=== PATIENT | female | born 1965 | race Caucasian/White ===

== ENCOUNTER 2023-01-20 02:33 | Observation (INO) ==
[2023-01-20 04:46] LABS: Albumin 3.4 g/dL (3.2-5.2); Albumin/Globulin Ratio 1.4 (1-3); Calcium 8.4 mg/dL (8.6-10.3); Creatinine, Serum 0.85 mg/dL (0.51-0.95); Globulin 2.5 g/dL (2-4); Potassium 3.5 mmol/L (3.5-5.0); Total Bilirubin 0.4 mg/dL (0.2-1.0); Total Protein 5.9 g/dL (6.4-8.9); eGFR CKD-EPI 80.4 (>60)
[2023-01-20 05:12] LABS: ABS Eosinophils 0.1 10^3/uL (0.0-0.5); ABS Lymphocytes 2.6 10^3/uL (1.0-4.8); ABS Monocytes 0.7 10^3/uL (0.0-0.9); ABS Neutrophils 3.6 10^3/uL (1.5-7.6); ABS Nucleated RBC 0.01 10^3/ul; Eosinophil % 1.8 %; Hematocrit 38.6 % (35-45); Hemoglobin 13.1 g/dL (11.5-14.3); Lymphocyte % 36.5 %; Mean Corpuscular Hemoglobin 29.8 pg (27-33); Mean Corpuscular Hgb Conc 33.8 g/dL (31-36); Mean Platelet Volume 7.1 fL (7.5-11.2); Nucleated Red Blood Cells % 0.1 %/100WBC (0.0-0.8); Platelet Count 251 10^3/uL (150-450); Red Blood Count 4.39 10^6/uL (3.63-4.92); White Blood Count 7.2 10^3/uL (3.8-11.8)
[2023-01-20 05:46] LABS: High Sensitivity Troponin 1 Hr < 3 pg/mL (<15)
[2023-01-20 07:30] LABS: HDL Cholesterol 54.7 mg/dL
[2023-01-20] MEDS ORDERED: Aminophylline 25 MG/ML VIAL ONE (09:05)
[2023-01-20] MEDS ORDERED: Regadenoson 0.4 MG/5 ML SYRINGE ONE (09:05)
[2023-01-20 15:02] VITALS: BP 120/74
== END 2023-01-20 15:55 | disposition home or self-care (01) ==
LOC: EDBD → ED 02:33 → EDHOLD 02:33 → SUATTDRO 05:02 → EDHOLD 15:54
PROVIDERS: ADMIT Internal Medicine; ATTEND Internal Medicine